=== PATIENT | female | born 1985 | race Caucasian/White ===

== ENCOUNTER 2020-04-03 15:36 | Outpatient (REF) | payer OTHER, SELFPAY ==
[2020-04-03 16:35] LABS: COVID-19 Test Negative (Negative)
== END 2020-04-03 15:37 | disposition home or self-care (01) ==
LOC: HO.LAB 15:36
PROVIDERS: Visit Provider Internal Medicine
DX: Z20.828 Contact with and (suspected) exposure to other viral communicable diseases (principal)
CPT/HCPCS: 87635; C9803

== ENCOUNTER 2020-04-24 14:09 | Outpatient (REF) | payer OTHER, SELFPAY ==
[2020-04-24 14:26] LABS: COVID-19 Test Positive (Negative); IDNOW Serial# 55D5AD1C
== END 2020-04-24 14:10 | disposition home or self-care (01) ==
LOC: HO.EMPCOV 14:09
PROVIDERS: Visit Provider Internal Medicine
DX: Z20.822 Contact with and (suspected) exposure to COVID-19 (principal)
CPT/HCPCS: 36415; 87635; C9803

== ENCOUNTER 2020-07-11 15:44 | Outpatient (REF) | payer OTHER, SELFPAY ==
[2020-07-11 16:13] LABS: COVID-19 Test Negative (Negative); IDNOW Serial# 55D5AD1C
== END 2020-07-11 15:45 | disposition home or self-care (01) ==
LOC: HO.EMPCOV 15:44
PROVIDERS: Visit Provider Internal Medicine
DX: Z20.822 Contact with and (suspected) exposure to COVID-19 (principal)
CPT/HCPCS: 36415; 87635; C9803

== ENCOUNTER 2020-07-11 16:16 | Emergency (ER) | payer OTHER, SELFPAY ==
[2020-07-11 16:37] VITALS: BP 148/89; PULSE 87; RESP 18; TEMP 36.1; O2SAT 99; BMI 43.9
[2020-07-11] MEDS: diphenhydrAMINE HCL 50 MG/ML VIAL 25 MG IVPUSH (17:48)
[2020-07-11] MEDS: Metoclopramide HCl 10 MG/2 ML VIAL IVPUSH (17:49)
[2020-07-11] MEDS: Ketorolac Tromethamine 15 MG/ML VIAL IVPUSH (17:49)
[2020-07-11 17:51] LABS: MANUAL DIFF FLAG NO
[2020-07-11 17:55] LABS: Basophils Percent Auto 0.4 % (0-2); Eosinophils Percent Auto 0.2 % (0-4); Hematocrit 40.3 % (37-47); Hemoglobin 13.7 g/dl (12.0-16.0); Imm Gran Abs Auto 0.02 X10*3/uL (0.00-0.03); Imm Gran Pct Auto 0.2 % (0.0-0.4); Lymphocytes Absolute Auto 1.3 X10*3/uL (1.2-4.9); Mean Corpuscular Volume 91.2 fL (80-98); Mean Platelet Volume 9.7 fL (9.4-12.3); Monocytes Absolute Auto 0.5 X10*3/uL (0.1-1.2); Monocytes Percent Auto 5.1 % (2-11); Neutrophils Absolute Auto 7.2 X10*3/uL (2.0-8.3); Neutrophils Percent Auto 80.1 % (45-73); Platelet Count 211 X10*3/uL (160-400); Red Blood Count 4.42 X10*6/uL (4.20-5.50); Red Cell Distribution Width 12.2 % (11.0-16.0)
[2020-07-11 18:21] LABS: Anion Gap 12 (12-20); Blood Urea Nitrogen 10 mg/dL (9-16); Calcium 8.5 mg/dL (8.4-10.2); Carbon Dioxide 28 mmol/L (22-29); Chloride 102 mmol/L (96-108); Creatinine Clr Calc Pharmacy 171.1; Estimated Glomerular Filt Rate > 60; Glucose Random 111 mg/dL (60-115); Potassium 3.9 mmol/L (3.3-5.1); Sodium 138 mmol/L (135-145)
--- NOTE | 2020-07-11 18:35 | ED.HA ---
HPI - Headache General Chief Complaint: Headache Stated Complaint: headache Time Seen by Provider: 07/11/20 16:45 Source: patient Mode of arrival: ambulatory History of Present Illness HPI Narrative: 34-year-old female with a past medical history of AFib, arthritis, presenting to the ED complaining of headache since Friday with associated photophobia and nausea. Reports headache has been progressively worsening since onset, not maximal in onset. Also reports associated lightheadedness. Denies visual loss, vomiting, CP/SOB, numbness/tingling, weakness, fever, chills. 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 MD elicited complaint: headache Related Data Previous Rx's Medication Instructions Recorded tszqdpybov-prqenthgbcbrc-[id number] 1 cap PO Q4-6H PRN #14 cap 07/11/20 [Fioricet] Allergies Allergy/AdvReac Type Severity Reaction Status Date / Time morphine Allergy Unknown Verified 07/11/20 18:04 topiramate [From Topamax] Allergy Unknown Verified 07/11/20 18:04 Review of Systems Review of Systems: Constitutional: No Fever, No Chills, No Fatigue, No Malaise Eyes: No Eye Pain, No Vision Changes Cardiovascular: No Chest Pain, No SOB Respiratory: No Cough, No Dyspnea Gastrointestinal: + Nausea, No Vomiting, No Diarrhea, No Abdominal pain Musculoskeletal: No joint pain, + Myalgias Skin: No Skin Lesions, No rash Neuro: No Weakness, No Numbness, No Paresthesias, + lightheadedness, + Headache Yes all other systems are reviewed and are negative Eyes: Eyes: Reports photophobia Neurologic: Denies Abnormal speech present [facility] Past Medical History Attestation statement: The following information was validated with the patient. Medical History (Updated 07/11/20 @ 20:17 by BRIDGER Jackson) Afib Arthritis Surgical History (Updated 07/11/20 @ 16:43 by Davida Albert) Hx of appendectomy Hx of cholecystectomy Social History Social History Alcohol intake: never Smoked in Last 30 Days: No Use of substances other than those prescribed or required for medical reasons: No Any prior treatment program specific to substance use: No Advance Directives: No Advance Directives Information Provided: No Physical Exam Vital Signs: Vital Signs: Last Vital Signs Temp 97.0 F 07/11/20 16:37 Pulse 87 07/11/20 16:37 Resp 18 07/11/20 16:37 BP 148/89 H 07/11/20 16:37 Pulse Ox 99 07/11/20 16:37 Body Mass Index 43.9 Const: General: cooperative, healthy appearing, no acute distress, well developed, alert and awake Orientation/consciousness: patient oriented x3 Limitations: no limitations HENMT: Head: Yes normal to inspection Ears: hearing grossly normal bilaterally General nose exam: Normal external nose present Face and sinus: Yes normal facial exam Throat: Yes posterior oropharynx normal Eyes: General: appearance normal, both eyes and all related structures Pupils: Equal, round and reactive pupils present EOM: EOMs intact bilaterally Direct Ophthalmoscopy: photophobia Neck: Other: + bilateral MSK neck tenderness to palpation, no midline tenderness Neck: Yes normal visual inspection and Yes no meningeal signs Resp: Effort & Inspection: normal respiratory effort Cardio: Rate: regular rate GI: Inspection: Yes normal to inspection Palpation (GI): Soft to palpation Skin: Rashes: no rashes Wounds: no wounds Neuro: General: patient oriented x3, gait normal, tone normal, moves all extremities, no meningeal signs, no focal motor deficits and CN's II-XI intact bilaterally Cranial nerves: Yes Equal, round and reactive pupils present Cognition (Neuro): normal cognition Speech: No Abnormal speech present Gait exam (Neuro): Normal gait present Motor exam (neuro): 5/5 motor strength present throughout and Pronator motor function not present Extrem: General: Yes normal to inspection Course Course Course Narrative: -no leukocytosis, labs otherwise unremarkable, COVID-19 negative -1840--on re-evaluation patient reports mild symptomatic improvement. Will order additional medications -2015--on re-evaluation patient reports symptomatic improvement. Feels safe for discharge home. Worrisome signs and symptoms and strict return precautions discussed, is to follow-up with PCP. MDM - Headache MDM Narrative Medical decision making narrative: 34-year-old female with a past medical history of AFib, arthritis, presenting to the ED complaining of headache since Friday with associated photophobia and nausea. On exam VSS, NAD/well-appearing, exam nonfocal, no focal neuro deficits. Concern for viral syndrome/COVID-19 vs migraine headache. Low concern for meningitis/encephalitis or CVT or SAH Plan: Labs, symptomatic treatment, reassess Lab Data Result diagrams: 07/11/20 17:33 07/11/20 17:33 Labs: Lab Results 07/11/20 07/11/20 Range/Units 17:33 17:33 WBC 9.0 (4.8-10.8) X10*3/uL RBC 4.42 (4.20-5.50) X10*6/uL Hgb 13.7 (12.0-16.0) g/dl Hct 40.3 (37-47) % MCV 91.2 (80-98) fL MCH 31.0 (27.0-33.0) pg MCHC 34.0 (31.0-35.0) g/dl RDW 12.2 (11.0-16.0) % Plt Count 211 (160-400) X10*3/uL MPV 9.7 (9.4-12.3) fL Immature Gran % (Auto) 0.2 (0.0-0.4) % Neut % (Auto) 80.1 H (45-73) % Lymph % (Auto) 14.0 L (20-40) % [place] % (Auto) 5.1 (2-11) % Eos % (Auto) 0.2 (0-4) % Baso % (Auto) 0.4 (0-2) % Lymph # (Auto) 1.3 (1.2-4.9) X10*3/uL [place] # (Auto) 0.5 (0.1-1.2) X10*3/uL Eos # (Auto) 0.0 (0.0-0.4) X10*3/uL Baso # (Auto) 0.0 (0.0-0.2) X10*3/uL Abs Immat Gran (auto) 0.02 (0.00-0.03) X10*3/uL Absolute Neuts (auto) 7.2 (2.0-8.3) X10*3/uL Absolute Nucleated RBC 0.000 (0.0-0.012) X10*3/uL Nucleated RBC % (auto) 0.0 (0.0-0.2) /100WBC Sodium 138 (135-145) mmol/L Potassium 3.9 (3.3-5.1) mmol/L Chloride 102 (96-108) mmol/L Carbon Dioxide 28 (22-29) mmol/L Anion Gap 12 (12-20) BUN 10 (9-16) mg/dL Creatinine 0.63 (0.5-1.4) mg/dL Estim Creat Clear Calc 171.1 Estimated GFR > 60 Random Glucose 111 (60-115) mg/dL Calcium 8.5 (8.4-10.2) mg/dL Discharge Plan Discharge Clinical Impression: Headache Patient Disposition: Home, Self-Care Instructions: Acute Headache (ED) Additional Instructions: Your blood work was unremarkable Your COVID-19 was negative Fioricet is a headache medication, take as needed Make sure staying hydrated at home In addition you may take Motrin If her headache persists or worsens, you develop weakness, numbness, persistent nausea/vomiting, or vision changes return to the ED Prescriptions: New mgzcugozyd-tqfoxpnxtyklm-ecrj [Fioricet] 50-300-40 mg capsule 1 cap PO Q4-6H PRN (Reason: headache) Qty: 14 RF: 0 Referrals: Tavares Nice MD [Primary Care Provider] - 2 days
[2020-07-11] MEDS: Butalb/Acetamin/Caff 50/325/40 TABLET 2 TAB PO (18:56)
[2020-07-11] MEDS: 0.9 % Sodium Chloride 1,000 ML 999 ML IVCONT (18:57)
[2020-07-11 20:33] VITALS: BP 142/75; PULSE 68; RESP 16; O2SAT 100
== END 2020-07-11 20:47 | disposition home or self-care (01) ==
PROVIDERS: Physician Assistant; Emergency Provider Internal Medicine; PCP Pediatrics
DX: R51.9 Headache, unspecified (principal); I48.91 Unspecified atrial fibrillation
CPT/HCPCS: 36415; 80048; 85025; 96361; 96374; 96375; 99284; J1200; J1885; J2765

== ENCOUNTER → 2020-09-27 08:18 | Outpatient (BNVA) | payer OTHER, SELFPAY | PROVIDERS: PCP Pediatrics; Visit Provider Anesthesiology | DX: M17.0 Bilateral primary osteoarthritis of knee (principal); M46.1 Sacroiliitis, not elsewhere classified; M53.3 Sacrococcygeal disorders, not elsewhere classified; E66.01 Morbid (severe) obesity due to excess calories; G89.4 Chronic pain syndrome | CPT/HCPCS: 99202 ==

== ENCOUNTER 2020-11-21 06:09 | Outpatient (REF) | payer OTHER, SELFPAY ==
--- NOTE | ~2020-11-21 | FL_ITS ---
EXAMINATION: XR FLUOROSCOPY WITH IMAGES CLINICAL INFORMATION: M17.0 - Bilateral primary osteoarthritis of knee COMPARISON: None. TECHNIQUE: Fluoroscopy performed by Yessenia Johnson NP. Fluoroscopy time: 0.3 minutes DAP: 1.21 Gycm2 Images: 1 FINDINGS: There is a spinal needle adjacent to the medial side proximal tibia. There are degenerative changes in the knee greater on the lateral side with joint narrowing and mild subchondral sclerosis and marginal osteophytes. No visible erosive change on portable spot view. FL/FL guidance in treatment room IMPRESSION: Fluoroscopy for pain management procedure.
== END 2020-11-21 06:10 | disposition home or self-care (01) ==
LOC: HO.RADIR 06:09
PROVIDERS: Visit Provider Anesthesiology
DX: M17.0 Bilateral primary osteoarthritis of knee (principal); E66.01 Morbid (severe) obesity due to excess calories; Z68.42 Body mass index [BMI] 45.0-49.9, adult
CPT/HCPCS: 64450; Q9967

== ENCOUNTER → 2020-11-27 12:08 | Outpatient (BNVA) | payer OTHER, SELFPAY | PROVIDERS: PCP Pediatrics; Visit Provider Anesthesiology ==

== ENCOUNTER → 2021-02-19 08:34 | Outpatient (BNVA) | payer OTHER, SELFPAY | PROVIDERS: PCP Pediatrics; Visit Provider Anesthesiology | DX: M17.0 Bilateral primary osteoarthritis of knee (principal); M46.1 Sacroiliitis, not elsewhere classified; M53.3 Sacrococcygeal disorders, not elsewhere classified; E66.01 Morbid (severe) obesity due to excess calories; G89.4 Chronic pain syndrome | CPT/HCPCS: 99212 ==

== ENCOUNTER → 2021-04-16 13:07 | Outpatient (BNVA) | payer OTHER, SELFPAY | PROVIDERS: PCP Pediatrics; Visit Provider Anesthesiology | DX: M17.0 Bilateral primary osteoarthritis of knee (principal); M46.1 Sacroiliitis, not elsewhere classified; M53.3 Sacrococcygeal disorders, not elsewhere classified; G89.4 Chronic pain syndrome; E66.01 Morbid (severe) obesity due to excess calories; Z68.42 Body mass index [BMI] 45.0-49.9, adult | CPT/HCPCS: 99212 ==

== ENCOUNTER → 2021-05-09 11:05 | Outpatient (BNVA) | payer OTHER, SELFPAY | PROVIDERS: PCP Pediatrics; Visit Provider Anesthesiology | DX: M17.0 Bilateral primary osteoarthritis of knee (principal); M46.1 Sacroiliitis, not elsewhere classified; M53.3 Sacrococcygeal disorders, not elsewhere classified; G89.4 Chronic pain syndrome; E66.01 Morbid (severe) obesity due to excess calories; Z68.42 Body mass index [BMI] 45.0-49.9, adult | CPT/HCPCS: 99212 ==

== ENCOUNTER → 2021-06-25 15:37 | Outpatient (BNVA) | payer OTHER, SELFPAY | PROVIDERS: PCP Pediatrics; Visit Provider Anesthesiology | DX: M46.1 Sacroiliitis, not elsewhere classified (principal); M53.3 Sacrococcygeal disorders, not elsewhere classified; M17.0 Bilateral primary osteoarthritis of knee; M25.521 Pain in right elbow; G89.4 Chronic pain syndrome; I82.429 Acute embolism and thrombosis of unspecified iliac vein; I48.91 Unspecified atrial fibrillation; E66.01 Morbid (severe) obesity due to excess calories; Z68.42 Body mass index [BMI] 45.0-49.9, adult; Z79.01 Long term (current) use of anticoagulants | CPT/HCPCS: 99212 ==

== ENCOUNTER 2021-07-30 13:14 | Outpatient (REF) | payer OTHER, SELFPAY ==
[2021-07-30 14:28] LABS: Rheumatoid Factor < 15.0 IU/mL (<15.0)
[2021-07-30 15:13] LABS: Erythrocyte Sedimentation Rate 19 MM/HR (0-20)
[2021-08-01 04:55] LABS: Lyme Abs Screen <0.90 index
[2021-08-01 14:26] LABS: Anti Nuclear Antibody Screen NEGATIVE (NEGATIVE)
== END 2021-07-30 13:15 | disposition home or self-care (01) ==
LOC: HO.LAB 13:14
PROVIDERS: PCP Pediatrics; Visit Provider Psychiatry & Neurology Neurology
DX: M79.7 Fibromyalgia (principal)
CPT/HCPCS: 36415; 82550; 85652; 86038; 86039; 86431; 86617; 86618

== ENCOUNTER 2022-12-25 13:03 | Outpatient (AMB) | payer OTHER, SELFPAY ==
--- NOTE | 2022-12-25 13:11 | A.OFFVIS_ITS ---
Intake Vital Signs 12/25/22 13:17 Height 5 ft 7 in Weight 306 lb BMI 47.9 BP 130/80 Blood Pressure Location Lt brachial Position Sitting Respiration 18 Pulse 74 Pulse Source Pulse Oximeter Pulse Oximetry (%) 99 Oxygen Delivery Method Room Air Intake Visit Reasons: Follow Up/Joint Pain/Confirmed Intake Note: patient comes in for follow up. Allergies morphine Allergy (Verified 12/25/22 13:18) Unknown topiramate [From Topamax] Allergy (Verified 12/25/22 13:18) Unknown HPI HPI Comments History of Present Illness Details Latricia is very pleasant 34 years old female who is back in my office to discuss the pain in the left knee as well as pain in the lower back, probably secondary to sacroiliac joint arthritis. Her pain in the knee left knee probably related to osteoarthritis left knee. She also reports a new pain higher in the lumbar spine which developed relatively recently, she was [place] and was evaluated in [facility] with [facility] scan. The CT scan demonstrated no acute fractures and minor arthritis of the lower lumbar L4-5 L5- S1 joints. That could be source of her pain as well. She is on Eliquis as before however now she received permission from her sedimentationist to stop Eliquis for the procedures. We agreed today that I will perform diagnostic sacroiliac joint injection. We will discuss possibility of treatment of her lower back pain if diagnostic sacroiliac joint injection will work. If it will not be working I will send her for the MRI to evaluate Modic type changes in her MRI. She reports difficulty sitting, she reports pain exacerbation with flexing forward. It is possible to that she has discogenic pain as well. We agreed that I will schedule her for diagnostic sacroiliac joint injection. After that I will perform 10 days after sacroiliac joint injection therapeutic left knee steroid injection to treat her knee arthritis. We also discussed her weight loss today including gastric bypass, gastric sleeve, gastroduodenal switch. She took all of this into consideration. Her primary care physician started her on Contrave which is combination of bupropion and naltrexone. She requests me to start her on muscle relaxant Zanaflex and tramadol. I am not sure drug to drug interaction of Zanaflex with Contrave, however I would not be very eager to start tramadol on the person who is taking bupropion which is SNRI. Besides the fact that currently our opioid program is closed for new admission. [facility] Medical History (Updated 12/25/22 @ 16:23 by Shin Cortez MD) Chronic pain syndrome Morbid obesity Sacroiliac joint dysfunction of left side Sacroiliitis Bilateral primary osteoarthritis of knee Arthritis Afib Surgical History (Updated 07/11/20 @ 16:43 by Davida Albert) Hx of appendectomy Hx of cholecystectomy Social History Alcohol intake: never Review of Systems Const All systems reviewed & are unremarkable except as noted in HPI and below Physical Exam Vital Signs: Last Vital Signs Pulse 74 12/25/22 13:17 Resp 18 12/25/22 13:17 BP 130/80 12/25/22 13:17 Pulse Ox 99 12/25/22 13:17 Oxygen Delivery Method Room Air 12/25/22 13:17 BMI result Body Mass Index 47.9 Const General: no acute distress Nutritional Appearance: obese morbidly obese Orientation/consciousness: patient oriented x3 Eyes General: appearance normal, both eyes and all related structures Pupils: Equal, round and reactive pupils present EOM: EOMs intact bilaterally Neck Neck: Yes full ROM Chest Chest palpation & inspection: normal inspection of the chest Resp Effort & Inspection: normal respiratory effort, able to speak in complete sentences, normal respiratory pattern, no audible wheezes and no cough Cardio Jugular venous distension: no JVD GI Inspection: Yes normal to inspection Back/Spine/Pelvis Other: Bharathi test is positive on the left, 14 fingers positive on the left, the pelvic compression test is positive on the left. Right sacroiliac joint testing is negative. A range of motion in bilateral knees is severely limited. No more than 90? flexion she is able to achieve. There is significant crepitus in bilateral knees on flexion and extension. Anterior posterior drawers negative, tests for ACL and PCL instability are negative, tests from meniscal pathology are negative. Difficulty sitting, flexing forward aggravates her pain much more than flexing backwards. Spent the entire time of the appointment with me standing because unable to tolerate sitting position. Vertebra genic pain is suspected. Neuro General: patient oriented x3 and gait normal Cranial nerves: Yes CN's II-XII intact bilaterally, Yes Equal, round and reactive pupils present and Yes Ability to bilaterally elevate shoulders present Gait exam (Neuro): Normal gait present Motor exam (neuro): 5/5 motor strength present throughout Extrem General: No pedal edema Psych Speech and movement: Normal speech and movement present Affect: normal affect Attitude: cooperative Thought process: Normal thought process present Thought content: Normal thought content present Insight: Good insight present (Psych) Judgement: Good judgement present (Psych) Assessment & Plan Assessment & Plan (1) Bilateral primary osteoarthritis of knee: Code(s): M17.0 - Bilateral primary osteoarthritis of knee (2) Sacroiliitis: Code(s): M46.1 - Sacroiliitis, not elsewhere classified (3) Sacroiliac joint dysfunction of left side: Code(s): M53.3 - Sacrococcygeal disorders, not elsewhere classified (4) Morbid obesity: Code(s): E66.01 - Morbid (severe) obesity due to excess calories (5) Chronic pain syndrome: Code(s): G89.4 - Chronic pain syndrome (6) Chronic sacroiliac joint pain: Code(s): M53.3 - Sacrococcygeal disorders, not elsewhere classified; G89.29 - Other chronic pain (7) Vertebrogenic low back pain: Code(s): M54.51 - Vertebrogenic low back pain Plan 1. This patient is very young to have any joint replacement procedures. She needs to work on her weight loss to at least limit the progression of her arthritis. She might be also genetic variant for Moni-Danlos syndrome although she was tested negative. 2. She was approved by psych evaluation at the beginning of November 2020 for the pain management protocol procedures. 3. I will schedule her for diagnostic bilateral sacroiliac joint injection. She needs to stop her Eliquis 3 days before the procedure and restarted 1 day after. She needs to go for the follow-up after diagnostic bilateral SI joint injection in 10 days. She needs to stop her Eliquis 1 more time 3 days before the follow- up in the office. I will be doing intra-articular left knee steroid injection. 4. If the diagnostic her iliac joint injection will result in no pain improvement I will send her for the MRI of the lumbar spine to evaluate Modic type changes. She reports difficulty sitting and pain exacerbation flexing forward. Patient Instructions: I here by testify that I spent 30 minutes in conversation with this patient as well as planning her care and organizing her note Coding Level of Care Code Est Pt Level 4 (89758) Diagnoses Bilateral primary osteoarthritis of knee M17.0 Sacroiliitis M46.1 Sacroiliac joint dysfunction of left side M53.3 Morbid obesity E66.01 Chronic pain syndrome G89.4 Chronic sacroiliac joint pain M53.3; G89.29 Vertebrogenic low back pain M54.51
[2022-12-25 13:17] VITALS: BP 130/80; PULSE 74; RESP 18; O2SAT 99; BMI 47.9
== END 2022-12-25 14:01 | disposition home or self-care (01) ==
PROVIDERS: PCP Pediatrics; Visit Provider Anesthesiology
DX: G89.4 Chronic pain syndrome (principal); M46.1 Sacroiliitis, not elsewhere classified; E66.01 Morbid (severe) obesity due to excess calories; Z68.42 Body mass index [BMI] 45.0-49.9, adult; M17.0 Bilateral primary osteoarthritis of knee; M53.3 Sacrococcygeal disorders, not elsewhere classified; M54.51 Vertebrogenic low back pain
CPT/HCPCS: 99214

== ENCOUNTER → 2022-12-25 13:03 | Outpatient (BNVA) | payer OTHER, SELFPAY | PROVIDERS: PCP Pediatrics; Visit Provider Anesthesiology | DX: M17.0 Bilateral primary osteoarthritis of knee (principal); M46.1 Sacroiliitis, not elsewhere classified; M53.3 Sacrococcygeal disorders, not elsewhere classified; M54.51 Vertebrogenic low back pain; E66.01 Morbid (severe) obesity due to excess calories; G89.29 Other chronic pain; Z68.42 Body mass index [BMI] 45.0-49.9, adult | CPT/HCPCS: 99212 ==

== ENCOUNTER 2023-02-18 06:23 | Outpatient (REF) | payer OTHER, SELFPAY | END 2023-02-18 06:24 | disposition home or self-care (01) | LOC: CF 06:23 | PROVIDERS: PCP Pediatrics; Visit Provider Anesthesiology | DX: Z13.89 Encounter for screening for other disorder (principal) | CPT/HCPCS: J2795; Q9967 ==